=== PATIENT | female | born 1995 | race Caucasian/White ===

== ENCOUNTER 2017-03-28 13:14 | Emergency (ER) | payer OTHER ==
--- NOTE | 2017-03-28 14:30 | UC ---
Throat Pain/Nasal Bryan HPI - HPI Summary HPI Summary: 21 y/o female presents to the urgent care c/o of sore throat and left upper dental pain for the past 2 days. Pt states pain when she swallows is 8/10. She has a caries in the left upper molars that is infected and it is painful. She had fever of 103F yesterday. Her mother is baby sitting a child who has sore throat too. Pt has been taking Tylenol. Last dose this morning. She also has a mild CHANEY with a dry cough. Pt denies nasal congestion, chest pain, abdominal pain , N/V/D. - History of Current Complaint Chief Complaint: UCRespiratory Stated Complaint: SORE THROAT Time Seen by Provider: 03/28/17 14:28 Hx Obtained From: Patient Hx Last Menstrual Period: 03/14/17 ?: No Onset/Duration: Gradual Onset, Lasting Days - 2 days, Still Present Severity: Moderate Pain Intensity: 8 Pain Scale Used: 0-10 Numeric Cough: Nonproductive Associated Signs & Symptoms: Positive: Dysphagia, Hoarseness, Fever - yesterday on 103F, Other - left upper jaw molar caries painful - Epiglottits Risk Factors Epiglottis Risk Factors: Negative PMH/Surg Hx/FS Hx/Imm Hx Previously Healthy: Yes - Pt denies PMHX - Surgical History Surgical History: None - Family History Known Family History: Positive: None - Pt denies FMHX - Social History Occupation: Employed Full-time Lives: With Family Alcohol Use: None Substance Use Type: None Smoking Status (MU): Light Every Day Tobacco Smoker - Immunization History Vaccination Up to Date: Yes Review of Systems Constitutional: Fever - yesterday of 103F Skin: Negative Eyes: Negative ENT: Sore Throat, Other - left upper jaw with dental pain and caries Respiratory: Cough - dry Cardiovascular: Negative Gastrointestinal: Negative Genitourinary: Negative Motor: Negative Neurovascular: Negative Musculoskeletal: Negative Neurological: Headache - mild Psychological: Negative Is Patient Immunocompromised?: No All Other Systems Reviewed And Are Negative: Yes Physical Exam Triage Information Reviewed: Yes Appearance: Well-Appearing, No Pain Distress, Well-Nourished Vital Signs: Initial Vital Signs Temp 98.2 F 03/28/17 14:20 Pulse 93 03/28/17 14:20 Resp 22 03/28/17 14:20 Pulse Ox 99 03/28/17 14:20 Eyes: Positive: Conjunctiva Clear - PERRLA, EOMI, fundi grossly normal ENT: Positive: Normal ENT inspection, Hearing grossly normal, Pharyngeal erythema - no exudate. palatal petechia, TMs normal - B/L external ear canal clear, B/L TM WNL, Tonsillar swelling. Negative: Nasal congestion, Nasal drainage, Tonsillar exudate Dental: Positive: Percussion Tenderness @ - Left upper molars #2 and #3 broken with caries and white yellowish drainage. severe tenderness on percussion. No abscess observed., Gross Decay/Caries @ - molar #2 and #3, Dental Fracture @ - molar #3, Cervical Lymphadenopathy - left anterior cerviacl lymphnode tender and enlarged. Neck: Positive: Supple Respiratory: Positive: Chest non-tender, Lungs clear, Normal breath sounds, No respiratory distress Cardiovascular: Positive: RRR, No Murmur, Pulses Normal, Brisk Capillary Refill Abdomen Description: Positive: Nontender, No Organomegaly, Soft. Negative: CVA Tenderness (R), CVA Tenderness (L) Bowel Sounds: Positive: Present Musculoskeletal: Positive: Strength Intact, ROM Intact, No Edema Neurological Exam: Normal Psychological Exam: Normal Skin Exam: Normal Throat Pain/Nasal Course/Dx - Course Course Of Treatment: 21 y/o female presents to the urgent care c/o of sore throat and left upper dental pain for the past 2 days. Pt states pain when she swallows is 8/10. She has a caries in the left upper molars that is infected and it is painful. She had fever of 103F yesterday. Her mother is baby sitting a child who has sore throat too. Pt has been taking Tylenol. Last dose this morning. She also has a mild CHANEY with a dry cough. Pt denies nasal congestion, chest pain, abdominal pain, N/V/D.HX obtained. Pt with pharyngitis and left upper molar 2 and 3 broken, caries and infected on examination. Rapid strep Ordered, result: negative. Pt with Viral pharyngitis. Pt given viscous Lidocaine at the clinic to alleviate symptoms. Pt Rx Amoxicillin PO and Ibuprofen PO for pain. Pt strongly advised to f/u with Dentist as soon as possible further evaluation and treatment. Pt understood and agreed with plan of care. Left the clinic ambulating. - Differential Dx/Diagnosis Differential Diagnosis/HQI/PQRI: Laryngitis, Mononucleosis, Pharyngitis, Tonsillitis, Other - dental abscess, caries, Provider Diagnoses: 1- viral pharyngitis. 2- Dental pain with molar caries Discharge - Discharge Plan Condition: Stable Disposition: HOME Prescriptions: Amoxicillin PO (*) [Amoxicillin 875 MG (*)] 875 mg PO BID #20 tab Ibuprofen TAB* [Motrin TAB* 800 MG] 800 mg PO Q6H #30 tab Patient Education Materials: Pharyngitis (ED), Toothache (ED) Forms: *Work Release Referrals: Emir Love, ANIMAL HUSBANDMAN [Primary Care Provider] - 2 Days Additional Instructions: 1-Please take full course of antibiotic to avoid resistance. 2- Take Ibuprofen as instructed after meals to alleviate pain and swelling. 3- F/u with your Dentist or Dental List provided as soon as possible for further treatment. 4- If symptoms do not improve or worsen please return to the urgent care or f/u with your PCP for further evaluation and treatment
[2017-03-28] MEDS ORDERED: Ibuprofen TAB* 400 MG PO ONE (14:42)
[2017-03-28] MEDS ORDERED: Lidocaine 2% VISCOUS* 15 ML UDC SWISH SPIT ONE (14:43)
== END 2017-03-28 15:05 | disposition home or self-care (01) ==
LOC: UCEAST 13:14
DX: J02.8 Acute pharyngitis due to other specified organisms (principal); K02.9 Dental caries, unspecified; K08.89 Other specified disorders of teeth and supporting structures; F17.210 Nicotine dependence, cigarettes, uncomplicated
CPT/HCPCS: 87651; 99212; A9270-GY; G0463

== ENCOUNTER 2017-07-06 17:33 | Emergency (ER) | payer OTHER ==
[2017-07-06 17:39] VITALS: BP 126/78
== END 2017-07-06 18:55 | disposition left against medical advice (07) ==
LOC: ED 17:33
DX: O26.90 Pregnancy related conditions, unspecified, unspecified trimester (principal); Z53.21 Procedure and treatment not carried out due to patient leaving prior to being seen by health care provider

== ENCOUNTER 2020-08-22 08:08 | Inpatient (IN) ==
[2020-08-22] MEDS ORDERED: Buffered Lidocaine 1% SYRIN 1 ml INTRADERM ONE (09:16)
[2020-08-22] MEDS ORDERED: Lactated Ringers 1000 ml BAG 1,000 ML IV ONE ×2 (09:16→16:12)
[2020-08-22 10:00] LABS: Urine Benzodiazepine Screen None Detected (None Detect); Urine Cannabinoids Screen Presumptive Positive (None Detect); Urine Opiates Screen None Detected (None Detect)
[2020-08-22] MEDS ORDERED: Oxytocin in LR 20 UNITS/1,000 ML BAG IVPB SCH (10:00)
[2020-08-22] MEDS: Lactated Ringers 1000 ml BAG 1,000 ML IV SCH ×2 (10:08→15:38)
[2020-08-22 11:11] LABS: Hematocrit 31 % (35-47); Hemoglobin 10.2 g/dL (12.0-16.0); Mean Corpuscular HGB Conc 33 g/dL (31-36); Mean Corpuscular Hemoglobin 28 pg (27-31); Mean Corpuscular Volume 85 fL (80-97); Mean Platelet Volume 8.2 fL (7.4-10.4); Platelet Count 495 10^3/uL (150-450); Red Blood Count 3.67 10^6 /uL (3.70-4.87); Red Cell Distribution Width 15 % (10-15)
[2020-08-22 11:17] LABS: ABS Eosinophils 0.1 10^3/ul (0-0.6); ABS Lymphocytes 2.2 10^3/ul (1.0-4.8); ABS Neutrophils 13.8 10^3/ul (1.5-7.7); Eosinophil % 0.6 %; Lymphocyte % 12.7 %
[2020-08-22] MEDS ORDERED: OBEPIDURAL 250 ML EPIDURAL ONE (15:26)
[2020-08-22] MEDS ORDERED: Phenylephrine 40 mcg/mL 10mL (400mcg) SYRINGE IV PUSH PRN ×2 (16:12)
[2020-08-22] MEDS ORDERED: Sodium Citrate/Citric Acid LIQ 15 ML UDC PO PRN (16:12)
[2020-08-22] MEDS ORDERED: Lactated Ringers 1000 ml BAG 500 ML IV PRN (16:12)
[2020-08-22] MEDS ORDERED: Lactated Ringers 1000 ml BAG 1,000 ML IV SCH ×2 (17:00)
[2020-08-22] MEDS ORDERED: OBEPIDURAL 250 ML EPIDURAL SCH (17:00)
[2020-08-22] MEDS ORDERED: fentaNYL 100 mcg/2 ml 50 MCG/ML VIAL ONE ×2 (20:14→22:48)
[2020-08-22] MEDS ORDERED: Bupivacaine 0.25% SDV PF 10 ML VIAL INJ ONE ×2 (20:14→22:48)
[2020-08-22] MEDS ORDERED: Sterile Water for Inj 10 ML ONE (20:14)
[2020-08-23] MEDS ORDERED: Glycerin ADULT 2.4 gm SUPP PR PRN (01:46)
[2020-08-23] MEDS ORDERED: Dibucaine 1% OINT 28.35 GM TUBE PR PRN (01:46)
[2020-08-23] MEDS ORDERED: Witch Hazel PAD JAR TOPICAL PRN (01:46)
[2020-08-23] MEDS ORDERED: Lactated Ringers 1000 ml BAG 1,000 ML IV SCH (02:00)
[2020-08-23] MEDS ORDERED: Oxytocin in LR 20 UNITS/1,000 ML BAG IVPB SCH (02:00)
[2020-08-23] MEDS ORDERED: Lidocaine 1% VIAL 10 MG/ML VIAL ONE (02:55)
[2020-08-23] MEDS: oxyCODONE/Acetamin 5/325 mg TAB PO PRN ×3 (04:11→20:31)
[2020-08-23] MEDS ORDERED: Hemorrhoidal OINT 1 TUBE PR PRN (16:51)
[2020-08-24] MEDS: oxyCODONE/Acetamin 5/325 mg TAB PO PRN ×2 (00:27→07:51)
[2020-08-24 06:34] LABS: ABS Basophils 0.1 10^3/ul (0-0.2); ABS Eosinophils 0.2 10^3/ul (0-0.6); ABS Lymphocytes 2.8 10^3/ul (1.0-4.8); ABS Monocytes 1.1 10^3/ul (0-0.8); ABS Neutrophils 10.1 10^3/ul (1.5-7.7); Eosinophil % 1.2 %; Hematocrit 26 % (35-47); Hemoglobin 8.6 g/dL (12.0-16.0); Lymphocyte % 19.5 %; Mean Corpuscular HGB Conc 33 g/dL (31-36); Mean Corpuscular Hemoglobin 28 pg (27-31); Mean Corpuscular Volume 85 fL (80-97); Platelet Count 417 10^3/uL (150-450); Red Blood Count 3.05 10^6 /uL (3.70-4.87); Red Cell Distribution Width 15 % (10-15); White Blood Count 14.2 10^3/uL (3.5-10.8)
[2020-08-24 07:29] VITALS: BP 126/68
== END 2020-08-24 13:26 | disposition home or self-care (01) | DRG 806 ==
LOC: MCHOBOUT 08:08 → MCHOB 09:16
PROVIDERS: ADMIT Midwife; ATTEND Midwife

== ENCOUNTER 2022-08-09 14:19 | Inpatient (IN) ==
[2022-08-09] MEDS ORDERED: Buffered Lidocaine 1% SYRIN 1 ml INTRADERM ONE (14:24)
[2022-08-09] MEDS ORDERED: Lactated Ringers 1000 ml BAG 1,000 ML IV ONE (14:24)
[2022-08-09] MEDS ORDERED: Nalbuphine 10 MG/ML 1 ML VIAL IV PRN (14:24)
[2022-08-09] MEDS ORDERED: Promethazine INJ(RESTRICTED) 25 MG/ML 1 ml VIAL IV PRN (14:24)
[2022-08-09] MEDS ORDERED: Lactated Ringers 1000 ml BAG 1,000 ML IV SCH ×2 (15:00→17:00)
[2022-08-09 15:03] LABS: ABS Basophils 0.1 10^3/ul (0-0.2); ABS Eosinophils 0.1 10^3/ul (0-0.6); ABS Lymphocytes 1.9 10^3/ul (1.0-4.8); ABS Monocytes 0.9 10^3/ul (0-0.8); ABS Neutrophils 14.7 10^3/ul (1.5-7.7); Eosinophil % 0.3 %; Hematocrit 33 % (35-47); Hemoglobin 10.4 g/dL (12.0-16.0); Lymphocyte % 10.7 %; Mean Corpuscular Hemoglobin 26 pg (27-31); Mean Corpuscular Hgb Conc 31 g/dL (31-36); Mean Corpuscular Volume 82 fL (80-97); Mean Platelet Volume 8.2 fL (7.4-10.4); Platelet Count 429 10^3/uL (150-450); Red Blood Count 4.03 10^6 /uL (3.70-4.87); Red Cell Distribution Width 16 % (10-15); White Blood Count 17.6 10^3/uL (3.5-10.8)
[2022-08-09] MEDS ORDERED: Lidocaine 1.5% EPI 1:200,000 30 ML SDV ONE (15:11)
[2022-08-09] MEDS ORDERED: OBEPIDURAL (200 ML) 0 ML EPIDURAL ONE (15:11)
[2022-08-09 15:22] LABS: Urine Benzodiazepine Screen None Detected (None Detect); Urine Opiates Screen None Detected (None Detect)
[2022-08-09] MEDS ORDERED: fentaNYL 100 mcg/2 ml 50 MCG/ML VIAL ONE (15:22)
[2022-08-09] MEDS ORDERED: Bupivacaine 0.25% SDV PF 10 ML VIAL INJ ONE (15:23)
[2022-08-09] MEDS ORDERED: Oxytocin in LR 0 MILLI.UNIT/0 ML BAG IV ONE (16:07)
[2022-08-09] MEDS ORDERED: Witch Hazel PAD JAR TOPICAL PRN (16:43)
[2022-08-09] MEDS ORDERED: Oxytocin 10 UNITS/ML 1 ML VIAL IM PRN (16:43)
[2022-08-09] MEDS ORDERED: Dibucaine 1% OINT 28.35 GM TUBE PR PRN (16:43)
[2022-08-09] MEDS ORDERED: Phenylephrine 40 mcg/mL 10mL (400mcg) SYRINGE ONE (18:34)
[2022-08-09] MEDS ORDERED: Lidocaine 1% VIAL 10 MG/ML VIAL 30 ML ONE (18:34)
[2022-08-10] MEDS ORDERED: Lactated Ringers 1000 ml BAG 1,000 ML IV ONE (05:44)
[2022-08-10] MEDS ORDERED: OBEPIDURAL (200 ML) 200 ML EPIDURAL SCH (06:00)
[2022-08-10] MEDS ORDERED: Lactated Ringers 1000 ml BAG 1,000 ML IV SCH (06:00)
[2022-08-10 06:59] LABS: ABS Basophils 0.1 10^3/ul (0-0.2); ABS Eosinophils 0.1 10^3/ul (0-0.6); ABS Lymphocytes 1.7 10^3/ul (1.0-4.8); ABS Monocytes 0.9 10^3/ul (0-0.8); ABS Neutrophils 9.7 10^3/ul (1.5-7.7); Eosinophil % 0.8 %; Hematocrit 25 % (35-47); Hemoglobin 8.3 g/dL (12.0-16.0); Lymphocyte % 13.8 %; Mean Corpuscular Hemoglobin 27 pg (27-31); Mean Corpuscular Hgb Conc 33 g/dL (31-36); Mean Corpuscular Volume 81 fL (80-97); Platelet Count 327 10^3/uL (150-450); Red Blood Count 3.06 10^6 /uL (3.70-4.87); Red Cell Distribution Width 16 % (10-15); White Blood Count 12.4 10^3/uL (3.5-10.8)
[2022-08-10 08:55] VITALS: BP 122/68
== END 2022-08-10 17:15 | disposition home or self-care (01) | DRG 560 ==
LOC: MCHOBOUT 14:19 → MCHOB 14:23
PROVIDERS: ADMIT Registered Nurse; ATTEND Registered Nurse